=== PATIENT | female | born 1975 | race Caucasian/White ===

== ENCOUNTER → 2022-05-26 15:29 | Outpatient (CLI) | payer OTHER, SELFPAY ==
--- NOTE | ~2022-05-26 | US_ITS ---
US soft tissue LE LT DATE: 05/26/2022 15:54 INDICATION: Swelling in the anterolateral ankle area for years TECHNIQUE: Real-time imaging and area of concern in the anterolateral calf superior to the ankle COMPARISON: None FINDINGS: No suspicious mass or abnormal fluid collection or other significant abnormality is noted. IMPRESSION: Negative Reviewed, dictated and finalized at [facility]. Reviewed, dictated and finalized at [facility]. 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
== END ==
LOC: EXPGOSHRAD 15:32
PROVIDERS: PCP Internal Medicine; Visit Provider Internal Medicine
DX: M79.89 Other specified soft tissue disorders (principal)
CPT/HCPCS: 76882